=== PATIENT | male | born 1950 | race Caucasian/White ===

== ENCOUNTER 2021-08-11 09:40 | Outpatient (CLI) | payer MEDICARE, MEDICAID | END 2021-08-11 09:41 | disposition home or self-care (01) | LOC: PET 09:40 | PROVIDERS: ATTEND Family Medicine | DX: J98.59 Other diseases of mediastinum, not elsewhere classified (principal); R18.8 Other ascites; C38.3 Malignant neoplasm of mediastinum, part unspecified; Z87.898 Personal history of other specified conditions; Z90.81 Acquired absence of spleen; Z90.5 Acquired absence of kidney | CPT/HCPCS: 78815; A9552 ==

== ENCOUNTER 2021-10-27 12:33 | Day surgery (SDC) | payer OTHER, MEDICAID, MEDICARE ==
[2021-10-26 16:02] VITALS: BMI 29.1
[~2021-10-27 12:33] MED LIST: FLU VACC QS2021-22(65YR UP)/PF 240 MCG/0.7 ML SYRINGE IM ONE
[2021-10-27 13:03] LABS: Hemoglobin 12.4 g/dL (14.0-18.0); Mean Corpuscular HGB CONC 28.2 g/dL (32.0-36.0); Mean Corpuscular Hemoglobin 30.6 pg (27.0-31.0); Mean Platelet Volume 7.5 fL (7.4-10.4); Platelet Count 284 thou/uL (130-400); RBC Distribution Width 14.9 % (11.5-14.5); Red Blood Cell (RBC) Count 4.05 mill/uL (4.70-6.10); White Blood Cell (WBC) Count 7.1 thou/uL (4.8-10.8)
[2021-10-27 13:18] LABS: INR-International Normal Ratio 1.2; PTT 30.3 sec (22.9-36.1); Prothrombin Time 15.2 sec (12.0-14.7)
[2021-10-27] MEDS ORDERED: Sodium Bicarbonate 2.5 MEQ/5 ML VIAL ONE (13:27)
[2021-10-27] MEDS ORDERED: Lidocaine 1% PF 5 ML VIAL ONE (13:27)
[2021-10-27 13:30] LABS: Eosinophils 3 % (0-10); Lymphocytes 19 % (21-51); MDiff Complete? YES; Macrocytosis SLIGHT = 6-15 cells (100X) (0-5/hpf); Monocytes 6 % (0-10); Neutrophil 71 % (42-75); Ovalocytes SLIGHT = 2-5 cells (100X) (0-1/hpf); Platelet Morphology Comment Appears Adequate; Polychromasia SLIGHT = 2-3 cells (100X) (0-2/hpf); Reactive Lymphocytes 1 % (0-10); Target Cells SLIGHT = 2-5 cells (100X) (0-1/hpf)
[2021-10-27 15:02] VITALS: BP 122/74; TEMP 98.4
[2021-10-27 16:11] LABS: RBC Count-Automated (BF) 1065 /cu.mm; WBC/Nucleated-Auto (BF) 124 /cu.mm
[2021-10-27 16:12] LABS: BF Color Yellow; Body Fluid Source Ascites Body Fluid; Clarity Hazy (Clear); Tube # EDTA
[2021-10-27 16:40] LABS: BF Segmented Neutrophils 40 %; Cell Count Non Hematic 48 %; Lymphocytes 10 %
== END 2021-10-27 14:15 | disposition home or self-care (01) ==
LOC: ULT 12:33
PROVIDERS: ATTEND Physician Assistant Medical
PROC: 0W9G3ZX Drainage of Peritoneal Cavity, Percutaneous Approach, Diagnostic (ICD-10-PCS; principal; 2021-10-27)
DX: R18.8 Other ascites (principal); R74.8 Abnormal levels of other serum enzymes; C34.90 Malignant neoplasm of unspecified part of unspecified bronchus or lung; D63.0 Anemia in neoplastic disease; F17.200 Nicotine dependence, unspecified, uncomplicated; I11.0 Hypertensive heart disease with heart failure; I50.9 Heart failure, unspecified; Z23 Encounter for immunization; Z79.82 Long term (current) use of aspirin; Z79.899 Other long term (current) drug therapy; Z90.5 Acquired absence of kidney
CPT/HCPCS: 49083; 82042; 84157; 85025; 85610; 85730; 87070; 87205; 89051; 90662; G0008; 36415; 85060; 88112; 88305; 90471

== ENCOUNTER 2021-12-02 12:35 | Inpatient (IN) | payer MEDICARE, OTHER ==
[~2021-12-02 12:35] MED LIST changes: -FLU VACC QS2021-22(65YR UP)/PF 240 MCG/0.7 ML SYRINGE IM ONE; +Iopamidol-370 76% 500 ML 1 ML ONE
[2021-12-02] MEDS ORDERED: Morphine 4 MG/ML VIAL ONE (13:26)
[2021-12-02 13:45] LABS: Hemoglobin 6.2 g/dL (14.0-18.0); Mean Corpuscular HGB CONC 30.1 g/dL (32.0-36.0); Mean Corpuscular Hemoglobin 32.5 pg (27.0-31.0); Mean Platelet Volume 7.2 fL (7.4-10.4); Platelet Count 290 thou/uL (130-400); RBC Distribution Width 16.4 % (11.5-14.5); Red Blood Cell (RBC) Count 1.91 mill/uL (4.70-6.10); White Blood Cell (WBC) Count 7.9 thou/uL (4.8-10.8)
[2021-12-02 13:59] LABS: ALT (SGPT) 13 U/L (8-55); AST (SGOT) 23 U/L (5-34); Alkaline Phosphatase 123 U/L (40-110); Anion Gap 16 mmol/L (10-20); Anisocytosis SLIGHT = 6-15 cells (100X) (0-5/hpf); BUN (Urea Nitrogen) 22 mg/dL (8.4-25.7); Bilirubin, Total 1.1 mg/dL (0.2-1.2); Calc. Creatinine Clearance 0 mL/min (70-130); Calcium 8.1 mg/dL (7.8-10.44); Carbon Dioxide 29 mmol/L (23-31); Chloride 88 mmol/L (98-107); Eosinophils 1 % (0-10); Globulin 2.7 g/dL (2.4-3.5); Glucose 86 mg/dL (83-110); Hypochromia SLIGHT = 6-15 cells (100X) (0-5/hpf); Lymphocytes 10 % (21-51); MDiff Complete? YES; Macrocytosis SLIGHT = 6-15 cells (100X) (0-5/hpf); Monocytes 11 % (0-10); Neutrophil 72 % (42-75); Platelet Morphology Comment Appears Adequate; Polychromasia SLIGHT = 2-3 cells (100X) (0-2/hpf); Potassium 3.4 mmol/L (3.5-5.1); Protein, Total 5.7 g/dL (5.8-8.1); Reactive Lymphocytes 1 % (0-10); Sodium 130 mmol/L (136-145); Target Cells SLIGHT = 2-5 cells (100X) (0-1/hpf)
[2021-12-02 14:22] LABS: CKMB 4.9 ng/mL (0-6.6)
[2021-12-02] MEDS ORDERED: Furosemide 40 MG/4 ML VIAL ONE (14:29)
[2021-12-02] MEDS ORDERED: Ondansetron PF 4 MG/2 ML Vial IVP PRN (14:51)
[2021-12-02] MEDS ORDERED: Ondansetron ODT 4 MG TAB PO PRN (14:51)
[2021-12-02] MEDS ORDERED: Acetaminophen 650 MG Suppository PR PRN (14:51)
[2021-12-02] MEDS ORDERED: Acetaminophen 325 MG TAB PO PRN (14:51)
[2021-12-02] MEDS ORDERED: Magnesium 2 GM/50 ML(in water) 2 GM in Premix Bag 1 BAG IVPB SCH (15:00)
[2021-12-02] MEDS ORDERED: Potassium Chloride 20 MEQ TAB PO SCH (15:00)
[2021-12-02] MEDS ORDERED: Methocarbamol 500 MG TAB PO SCH (15:15)
[2021-12-02 15:20] LABS: Magnesium 1.7 mg/dL (1.6-2.6)
[2021-12-02] MEDS ORDERED: Furosemide 40 MG/4 ML VIAL SLOW IVP SCH (17:45)
[2021-12-02 18:57] LABS: INR-International Normal Ratio 2.2
[2021-12-02 19:09] LABS: Anion Gap 14 mmol/L (10-20); BUN (Urea Nitrogen) 24 mg/dL (8.4-25.7); Calc. Creatinine Clearance 74 mL/min (70-130); Calcium 8.3 mg/dL (7.8-10.44); Carbon Dioxide 35 mmol/L (23-31); Chloride 87 mmol/L (98-107); Glucose 94 mg/dL (83-110); Potassium 3.8 mmol/L (3.5-5.1); Sodium 132 mmol/L (136-145)
[2021-12-02] MEDS: Pantoprazole 40 MG VIAL IVP SCH ×3 (19:11→22:02)
[2021-12-02 19:16] LABS: Troponin I 0.084 ng/mL (< 0.028)
[2021-12-02] MEDS: Octreotide Acetate 1,250 MCG in Sodium Chloride 0.9% 250 ML 250 ML IVPB SCH (19:26)
[2021-12-02] MEDS ORDERED: Morphine 2 MG/ML VIAL SLOW IVP SCH (19:30)
[2021-12-02 20:09] LABS: Troponin I 0.088 ng/mL (< 0.028)
[2021-12-02 20:41] LABS: Bacteria/HPF None Seen HPF (None Seen); Bilirubin Negative (Negative); Blood, Urine Negative (Negative); Clarity Clear (Clear); Glucose, Urine (Dipstick) Normal (Negative); Ketone, Urine Negative (Negative); Leukocyte Negative Leu/uL (Negative); Nitrite Negative (Negative); Protein, Urine (Dipstick) Negative (Neg-Trace); RBC/HPF 0-3 HPF (0-3); Specific Gravity, Urine 1.024 (1.002-1.036); Squamous Epithelial None Seen HPF (0-3); Urobilinogen Normal mg/dL (Less than 2); WBC/HPF None Seen HPF (0-3); pH, Urine 6.5 (5.0-9.0)
[2021-12-02 20:44] LABS: Urine Culture Reflex No No
[2021-12-02 21:52] LABS: Hemoglobin 7.1 g/dL (14.0-18.0); Mean Corpuscular HGB CONC 30.7 g/dL (32.0-36.0); Mean Corpuscular Hemoglobin 31.9 pg (27.0-31.0); Mean Platelet Volume 7.2 fL (7.4-10.4); Platelet Count 300 thou/uL (130-400); RBC Distribution Width 17.2 % (11.5-14.5); Red Blood Cell (RBC) Count 2.23 mill/uL (4.70-6.10); White Blood Cell (WBC) Count 9.9 thou/uL (4.8-10.8)
[2021-12-02 22:12] LABS: Band 7 % (5-11); Eosinophils 1 % (0-10); Lymphocytes 11 % (21-51); MDiff Complete? YES; Monocytes 9 % (0-10); Neutrophil 70 % (42-75)
[2021-12-02] MEDS: Metoprolol Tartrate 50 MG TAB PO SCH (22:17)
[2021-12-02] MEDS ORDERED: Furosemide 40 MG/4 ML VIAL IVP SCH (22:30)
[2021-12-02 22:55] LABS: Anion Gap 16 mmol/L (10-20); BUN (Urea Nitrogen) 23 mg/dL (8.4-25.7); Calc. Creatinine Clearance 75 mL/min (70-130); Calcium 8.3 mg/dL (7.8-10.44); Carbon Dioxide 31 mmol/L (23-31); Chloride 88 mmol/L (98-107); Glucose 95 mg/dL (83-110); Magnesium 1.7 mg/dL (1.6-2.6); Potassium 3.9 mmol/L (3.5-5.1); Sodium 131 mmol/L (136-145)
[2021-12-02] MEDS ORDERED: Promethazine HCl 25 MG/ML VIAL IM PRN ×2 (23:35→23:37)
[2021-12-02] MEDS ORDERED: Digoxin 0.5 MG/2 ML AMP SLOW IVP SCH (23:45)
[2021-12-03] MEDS ORDERED: Amiodarone 150 MG, Admixture Fee 1 EACH in Dextrose 5% in Water 100 ML IVPB SCH (00:45)
[2021-12-03] MEDS: Amiodarone 450 MG, Admixture Fee 1 EACH in Dextrose 5% in Water 250 ML IVPB SCH ×2 (01:16→10:29)
[2021-12-03 04:49] LABS: ALT (SGPT) 12 U/L (8-55); AST (SGOT) 30 U/L (5-34); Albumin 3.3 g/dL (3.4-4.8); Alkaline Phosphatase 133 U/L (40-110); Anion Gap 15 mmol/L (10-20); BUN (Urea Nitrogen) 24 mg/dL (8.4-25.7); Bilirubin, Total 2.5 mg/dL (0.2-1.2); Calc. Creatinine Clearance 67 mL/min (70-130); Calcium 8.2 mg/dL (7.8-10.44); Carbon Dioxide 32 mmol/L (23-31); Chloride 87 mmol/L (98-107); Glucose 119 mg/dL (83-110); Magnesium 1.9 mg/dL (1.6-2.6); Potassium 4.3 mmol/L (3.5-5.1); Protein, Total 6.3 g/dL (5.8-8.1); Sodium 130 mmol/L (136-145)
[2021-12-03 04:53] LABS: Band 3 % (5-11); Eosinophils 1 % (0-10); Lymphocytes 12 % (21-51); MDiff Complete? YES; Mean Corpuscular HGB CONC 30.7 g/dL (32.0-36.0); Mean Corpuscular Hemoglobin 31.7 pg (27.0-31.0); Mean Platelet Volume 7.5 fL (7.4-10.4); Monocytes 19 % (0-10); Neutrophil 65 % (42-75); Nucleated RBC 2 % (0); Platelet Count 310 thou/uL (130-400); RBC Distribution Width 17.8 % (11.5-14.5); Red Blood Cell (RBC) Count 2.52 mill/uL (4.70-6.10); White Blood Cell (WBC) Count 12.9 thou/uL (4.8-10.8)
[2021-12-03] MEDS: Pantoprazole 40 MG VIAL IVP SCH ×2 (08:01→21:08)
[2021-12-03 10:06] LABS: Hemoglobin 7.8 g/dL (14.0-18.0)
[2021-12-03] MEDS: Atorvastatin Calcium 40 MG TAB PO SCH (10:12)
[2021-12-03] MEDS: Metoprolol Tartrate 50 MG TAB PO SCH ×2 (10:13→21:16)
[2021-12-03 12:22] LABS: SARS-CoV-2 PCR by NAA Not Detected (NotDetected)
[2021-12-03 16:38] LABS: Hemoglobin 7.6 g/dL (14.0-18.0)
[2021-12-03] MEDS: HYDROcodone/Acetaminophen 5/325 mg Tablet PO PRN (18:20)
[2021-12-03] MEDS ORDERED: Cyclobenzaprine 10 MG TAB PO SCH (21:00)
[2021-12-03] MEDS: Octreotide Acetate 1,250 MCG in Sodium Chloride 0.9% 250 ML 250 ML IVPB SCH (21:13)
[2021-12-03 22:21] LABS: Hemoglobin 7.7 g/dL (14.0-18.0)
[2021-12-04] MEDS: HYDROcodone/Acetaminophen 5/325 mg Tablet PO PRN (01:23)
[2021-12-04] MEDS: Amiodarone 450 MG, Admixture Fee 1 EACH in Dextrose 5% in Water 250 ML IVPB SCH ×2 (01:25→19:51)
[2021-12-04 04:37] LABS: ALT (SGPT) 13 U/L (8-55); AST (SGOT) 26 U/L (5-34); Albumin 3.4 g/dL (3.4-4.8); Alkaline Phosphatase 128 U/L (40-110); Anion Gap 11 mmol/L (10-20); BUN (Urea Nitrogen) 30 mg/dL (8.4-25.7); Bilirubin, Total 1.7 mg/dL (0.2-1.2); Calc. Creatinine Clearance 57 mL/min (70-130); Calcium 8.3 mg/dL (7.8-10.44); Carbon Dioxide 36 mmol/L (23-31); Chloride 86 mmol/L (98-107); Globulin 3.1 g/dL (2.4-3.5); Glucose 128 mg/dL (83-110); Potassium 4.4 mmol/L (3.5-5.1); Protein, Total 6.5 g/dL (5.8-8.1); Sodium 129 mmol/L (136-145)
[2021-12-04 05:14] LABS: Band 9 % (5-11); Hemoglobin 7.8 g/dL (14.0-18.0); Lymphocytes 16 % (21-51); MDiff Complete? YES; Macrocytosis SLIGHT = 6-15 cells (100X) (0-5/hpf); Mean Corpuscular HGB CONC 29.9 g/dL (32.0-36.0); Mean Corpuscular Hemoglobin 31.9 pg (27.0-31.0); Mean Platelet Volume 7.7 fL (7.4-10.4); Neutrophil 74 % (42-75); Platelet Count 362 thou/uL (130-400); Platelet Morphology Comment Appears Adequate; RBC Distribution Width 17.3 % (11.5-14.5); Red Blood Cell (RBC) Count 2.43 mill/uL (4.70-6.10); White Blood Cell (WBC) Count 10.3 thou/uL (4.8-10.8)
[2021-12-04] MEDS: Budesonide 0.5 MG/2 ML NEB NEB SCH ×2 (07:31→19:16)
[2021-12-04] MEDS: Atorvastatin Calcium 40 MG TAB PO SCH (10:24)
[2021-12-04] MEDS: Metoprolol Tartrate 50 MG TAB PO SCH ×2 (10:34→22:20)
[2021-12-04] MEDS: Pantoprazole 40 MG VIAL IVP SCH ×2 (10:35→22:20)
[2021-12-04] MEDS ORDERED: Midazolam HCl 2 mg/2 ml Vial ONE (10:42)
[2021-12-04] MEDS ORDERED: Ketamine 50 MG/ML (10ML VIAL) ONE (10:42)
[2021-12-04] MEDS ORDERED: Ondansetron HCl/PF 4 MG/2 ML Vial IVP PRN (12:05)
[2021-12-04] MEDS ORDERED: Succinylcholine 200 MG/10 ml SYRINGE FS ONE (12:12)
[2021-12-04] MEDS ORDERED: PROPOFOL 200 MG/20 ML VIAL ONE (12:12)
[2021-12-04] MEDS ORDERED: PHENYLEPHRINE-NS 100 MCG/ML 10 ML SYRINGE ONE (12:12)
[2021-12-04] MEDS: Octreotide Acetate 1,250 MCG in Sodium Chloride 0.9% 250 ML 250 ML IVPB SCH (22:19)
[2021-12-05] MEDS ORDERED: Amiodarone 450 MG, Admixture Fee 1 EACH in Dextrose 5% in Water 250 ML IVPB SCH (02:03)
[2021-12-05] MEDS: HYDROcodone/Acetaminophen 5/325 mg Tablet PO PRN ×2 (03:13)
[2021-12-05 05:10] LABS: ALT (SGPT) 15 U/L (8-55); AST (SGOT) 56 U/L (5-34); Albumin 2.8 g/dL (3.4-4.8); Alkaline Phosphatase 120 U/L (40-110); BUN (Urea Nitrogen) 33 mg/dL (8.4-25.7); Bilirubin, Total 1.7 mg/dL (0.2-1.2); Calc. Creatinine Clearance 51 mL/min (70-130); Calcium 7.8 mg/dL (7.8-10.44); Carbon Dioxide 22 mmol/L (23-31); Chloride 90 mmol/L (98-107); Globulin 3.5 g/dL (2.4-3.5); Glucose 85 mg/dL (83-110); Potassium 5.2 mmol/L (3.5-5.1); Protein, Total 6.3 g/dL (5.8-8.1); Sodium 128 mmol/L (136-145)
[2021-12-05] MEDS: Budesonide 0.5 MG/2 ML NEB NEB SCH ×3 (07:30→19:16)
[2021-12-05 07:55] LABS: Hemoglobin 7.9 g/dL (14.0-18.0); Mean Corpuscular HGB CONC 28.8 g/dL (32.0-36.0); Mean Corpuscular Hemoglobin 31.9 pg (27.0-31.0); RBC Distribution Width 16.9 % (11.5-14.5); Red Blood Cell (RBC) Count 2.48 mill/uL (4.70-6.10)
[2021-12-05 08:58] LABS: Anisocytosis SLIGHT = 6-15 cells (100X) (0-5/hpf); Band 1 % (5-11); Eosinophils 5 % (0-10); Lymphocytes 9 % (21-51); MDiff Complete? YES; Mean Platelet Volume 8.1 fL (7.4-10.4); Monocytes 12 % (0-10); Neutrophil 73 % (42-75); Nucleated RBC 2 % (0); Platelet Count 347 thou/uL (130-400); Platelet Morphology Comment Appears Adequate; Polychromasia SLIGHT = 2-3 cells (100X) (0-2/hpf)
[2021-12-05] MEDS: Atorvastatin Calcium 40 MG TAB PO SCH (09:08)
[2021-12-05] MEDS: Metoprolol Tartrate 50 MG TAB PO SCH (09:08)
[2021-12-05] MEDS: Pantoprazole 40 MG VIAL IVP SCH ×2 (09:08→20:19)
[2021-12-05] MEDS: Sodium Chloride 0.9% 1,000 ML IV SCH (12:30)
[2021-12-05] MEDS ORDERED: Midodrine HCl 5 MG TAB PO SCH (20:04)
[2021-12-05] MEDS ORDERED: Sodium Chloride 0.9% 250 ML IV SCH (20:15)
[2021-12-05] MEDS: Octreotide Acetate 1,250 MCG in Sodium Chloride 0.9% 250 ML 250 ML IVPB SCH (21:57)
[2021-12-06] MEDS: HYDROcodone/Acetaminophen 5/325 mg Tablet PO PRN ×2 (03:39→18:15)
[2021-12-06] MEDS: Sodium Chloride 0.9% 1,000 ML IV SCH (03:41)
[2021-12-06 05:16] LABS: ALT (SGPT) 15 U/L (8-55); AST (SGOT) 32 U/L (5-34); Albumin 2.9 g/dL (3.4-4.8); Alkaline Phosphatase 116 U/L (40-110); Anion Gap 18 mmol/L (10-20); BUN (Urea Nitrogen) 41 mg/dL (8.4-25.7); Bilirubin, Total 1.6 mg/dL (0.2-1.2); Calc. Creatinine Clearance 40 mL/min (70-130); Calcium 7.9 mg/dL (7.8-10.44); Carbon Dioxide 25 mmol/L (23-31); Chloride 89 mmol/L (98-107); Globulin 3.3 g/dL (2.4-3.5); Glucose 91 mg/dL (83-110); Protein, Total 6.2 g/dL (5.8-8.1); Sodium 127 mmol/L (136-145)
[2021-12-06 05:54] LABS: Band 6 % (5-11); Elliptocytes SLIGHT = 2-5 cells (100X) (0-1/hpf); Hemoglobin 7.4 g/dL (14.0-18.0); Hypochromia SLIGHT = 6-15 cells (100X) (0-5/hpf); Lymphocytes 7 % (21-51); MDiff Complete? YES; Mean Corpuscular HGB CONC 29.9 g/dL (32.0-36.0); Mean Corpuscular Hemoglobin 32.1 pg (27.0-31.0); Mean Platelet Volume 7.8 fL (7.4-10.4); Monocytes 12 % (0-10); Neutrophil 75 % (42-75); Nucleated RBC 1 % (0); Platelet Count 415 thou/uL (130-400); Platelet Morphology Comment Appears Increased; Polychromasia SLIGHT = 2-3 cells (100X) (0-2/hpf); RBC Distribution Width 16.4 % (11.5-14.5); Red Blood Cell (RBC) Count 2.29 mill/uL (4.70-6.10); Target Cells SLIGHT = 2-5 cells (100X) (0-1/hpf); White Blood Cell (WBC) Count 10.3 thou/uL (4.8-10.8)
[2021-12-06] MEDS: Budesonide 0.5 MG/2 ML NEB NEB SCH ×2 (07:25→18:49)
[2021-12-06] MEDS ORDERED: Bisacodyl 5 MG TAB PO PRN (07:42)
[2021-12-06] MEDS: DOPamine 400 MG/D5W 250 ML 250 ML IVPB SCH ×2 (08:31→21:55)
[2021-12-06] MEDS ORDERED: Furosemide 40 MG/4 ML VIAL ONE (09:19)
[2021-12-06] MEDS: Pantoprazole 40 MG VIAL IVP SCH ×2 (10:28→21:04)
[2021-12-06] MEDS: Atorvastatin Calcium 40 MG TAB PO SCH (10:28)
[2021-12-06 11:54] LABS: INR-International Normal Ratio 1.4; Prothrombin Time 17.6 sec (12.0-14.7)
[2021-12-06 11:55] LABS: PTT 45.3 sec (22.9-36.1)
[2021-12-06 14:32] LABS: Creatinine, Urine 60.54 mg/dL (63-166)
[2021-12-06 15:02] LABS: Iron 11 ug/dL (65-175); Iron Binding Capacity, Total 414 mcg/dL (261-462)
[2021-12-06] MEDS ORDERED: Furosemide 40 MG/4 ML VIAL SLOW IVP SCH (15:30)
[2021-12-06] MEDS: Albumin 25% 25 GM/100 ML BOT IVPB SCH ×2 (16:33→23:11)
[2021-12-06 17:08] LABS: RBC Count-Automated (BF) 1682 /cu.mm; WBC/Nucleated-Auto (BF) 262 /cu.mm
[2021-12-06 18:09] LABS: BF Color Yellow; Body Fluid Source Ascites Body Fluid; Clarity Clear (Clear); Tube # EDTA
[2021-12-06 18:11] LABS: BF Segmented Neutrophils 57 %; Cell Count Non Hematic 30 %; Lymphocytes 13 %
[2021-12-06] MEDS: Morphine 2 MG/ML VIAL SLOW IVP PRN ×2 (19:14→23:14)
[2021-12-06] MEDS ORDERED: Iron, Sodium Ferric Gluconate 250 MG in Sodium Chloride 0.9% 250 ML 250 ML IVPB SCH (20:30)
[2021-12-06] MEDS: Furosemide 20 MG/2 ML VIAL SLOW IVP SCH (21:04)
[2021-12-06] MEDS ORDERED: Hyoscyamine Sulfate 0.125 MG/5 ML UDCUP PO SCH (22:00)
[2021-12-06] MEDS: Octreotide Acetate 1,250 MCG in Sodium Chloride 0.9% 250 ML 250 ML IVPB SCH (23:11)
[2021-12-07 05:03] LABS: ALT (SGPT) 14 U/L (8-55); AST (SGOT) 20 U/L (5-34); Albumin 3.6 g/dL (3.4-4.8); Alkaline Phosphatase 109 U/L (40-110); Anion Gap 16 mmol/L (10-20); BUN (Urea Nitrogen) 41 mg/dL (8.4-25.7); Bilirubin, Total 2.2 mg/dL (0.2-1.2); Calc. Creatinine Clearance 48 mL/min (70-130); Calcium 8.1 mg/dL (7.8-10.44); Carbon Dioxide 33 mmol/L (23-31); Chloride 89 mmol/L (98-107); Globulin 2.8 g/dL (2.4-3.5); Glucose 96 mg/dL (83-110); Potassium 4.1 mmol/L (3.5-5.1); Protein, Total 6.4 g/dL (5.8-8.1); Sodium 134 mmol/L (136-145)
[2021-12-07 05:46] LABS: Anisocytosis SLIGHT = 6-15 cells (100X) (0-5/hpf); Band 3 % (5-11); Eosinophils 1 % (0-10); Hemoglobin 7.7 g/dL (14.0-18.0); Hypochromia MODERATE=16-30 cells (100X) (0-5/hpf); Lymphocytes 8 % (21-51); MDiff Complete? YES; Macrocytosis MODERATE=16-30 cells (100X) (0-5/hpf); Mean Corpuscular HGB CONC 30.8 g/dL (32.0-36.0); Mean Corpuscular Hemoglobin 32.3 pg (27.0-31.0); Mean Platelet Volume 7.5 fL (7.4-10.4); Monocytes 19 % (0-10); Neutrophil 68 % (42-75); Platelet Count 471 thou/uL (130-400); Platelet Morphology Comment Appears Increased; Polychromasia MODERATE = 3-4 cells (100X) (0-2/hpf); RBC Distribution Width 15.9 % (11.5-14.5); Reactive Lymphocytes 1 % (0-10); Red Blood Cell (RBC) Count 2.38 mill/uL (4.70-6.10); Target Cells SLIGHT = 2-5 cells (100X) (0-1/hpf); White Blood Cell (WBC) Count 8.2 thou/uL (4.8-10.8)
[2021-12-07] MEDS: Albumin 25% 25 GM/100 ML BOT IVPB SCH (06:02)
[2021-12-07] MEDS: Furosemide 20 MG/2 ML VIAL SLOW IVP SCH ×3 (06:02→21:29)
[2021-12-07] MEDS: Budesonide 0.5 MG/2 ML NEB NEB SCH ×2 (06:06→22:16)
[2021-12-07] MEDS ORDERED: Spironolactone 100 MG TAB PO SCH (06:45)
[2021-12-07] MEDS: Atorvastatin Calcium 40 MG TAB PO SCH (08:47)
[2021-12-07] MEDS: AcetaZOLAMIDE 250 MG TAB PO SCH ×3 (08:47→21:32)
[2021-12-07] MEDS: Pantoprazole 40 MG VIAL IVP SCH ×2 (08:47→21:29)
[2021-12-07] MEDS: Iron, Sodium Ferric Gluconate 250 MG in Sodium Chloride 0.9% 250 ML 250 ML IVPB SCH (08:48)
[2021-12-07 09:26] LABS: Bilirubin Negative (Negative); Blood, Urine 2+ (Negative); Clarity Clear (Clear); Glucose, Urine (Dipstick) Normal (Negative); Ketone, Urine Negative (Negative); Leukocyte 500 Leu/uL (Negative); Nitrite Negative (Negative); Protein, Urine (Dipstick) Negative (Neg-Trace); Squamous Epithelial 0-3 HPF (0-3); Urobilinogen Normal mg/dL (Less than 2)
[2021-12-07 09:27] LABS: Bacteria/HPF 1+ HPF (None Seen); Urine Culture Reflex Yes Yes
[2021-12-07] MEDS: Morphine 2 MG/ML VIAL SLOW IVP PRN (12:37)
[2021-12-07] MEDS: Morphine 4 MG/ML VIAL SLOW IVP PRN (19:09)
[2021-12-07] MEDS: Octreotide Acetate 1,250 MCG in Sodium Chloride 0.9% 250 ML 250 ML IVPB SCH (21:29)
[2021-12-07] MEDS: DOPamine 400 MG/D5W 250 ML 250 ML IVPB SCH (21:33)
[2021-12-07] MEDS: HYDROcodone/Acetaminophen 5/325 mg Tablet PO PRN (23:14)
[2021-12-08] MEDS: Morphine 4 MG/ML VIAL SLOW IVP PRN (03:32)
[2021-12-08] MEDS: Furosemide 20 MG/2 ML VIAL SLOW IVP SCH ×3 (05:16→21:40)
[2021-12-08] MEDS: Budesonide 0.5 MG/2 ML NEB NEB SCH ×2 (07:21→18:19)
[2021-12-08 08:25] LABS: ALT (SGPT) 12 U/L (8-55); AST (SGOT) 18 U/L (5-34); Albumin 3.5 g/dL (3.4-4.8); Alkaline Phosphatase 108 U/L (40-110); BUN (Urea Nitrogen) 31 mg/dL (8.4-25.7); Bilirubin, Total 1.7 mg/dL (0.2-1.2); Calc. Creatinine Clearance 56 mL/min (70-130); Calcium 8.2 mg/dL (7.8-10.44); Glucose 97 mg/dL (83-110); Magnesium 1.6 mg/dL (1.6-2.6); Phosphorus 3.5 mg/dL (2.3-4.7); Protein, Total 6.5 g/dL (5.8-8.1)
[2021-12-08 08:35] LABS: Anion Gap 17 mmol/L (10-20); Carbon Dioxide 35 mmol/L (23-31); Chloride 89 mmol/L (98-107); Potassium 3.9 mmol/L (3.5-5.1); Sodium 137 mmol/L (136-145)
[2021-12-08] MEDS: Pantoprazole 40 MG VIAL IVP SCH ×2 (09:38→21:36)
[2021-12-08] MEDS: AcetaZOLAMIDE 250 MG TAB PO SCH ×3 (09:38→21:36)
[2021-12-08] MEDS: HYDROcodone/Acetaminophen 5/325 mg Tablet PO PRN (09:42)
[2021-12-08] MEDS: Iron, Sodium Ferric Gluconate 250 MG in Sodium Chloride 0.9% 250 ML 250 ML IVPB SCH (10:45)
[2021-12-08] MEDS: Atorvastatin Calcium 40 MG TAB PO SCH ×2 (10:47→21:36)
[2021-12-08] MEDS ORDERED: Magnesium 2 GM/50 ML(in water) 2 GM in Premix Bag 1 BAG IVPB SCH (15:00)
[2021-12-08] MEDS: Trospium 20 MG TAB PO SCH (21:36)
[2021-12-09] MEDS: DOPamine 400 MG/D5W 250 ML 250 ML IVPB SCH ×2 (00:22→13:19)
[2021-12-09] MEDS: Morphine 4 MG/ML VIAL SLOW IVP PRN (01:20)
[2021-12-09 04:44] LABS: ALT (SGPT) 11 U/L (8-55); AST (SGOT) 20 U/L (5-34); Albumin 3.4 g/dL (3.4-4.8); Alkaline Phosphatase 105 U/L (40-110); BUN (Urea Nitrogen) 25 mg/dL (8.4-25.7); Bilirubin, Total 1.6 mg/dL (0.2-1.2); Calc. Creatinine Clearance 64 mL/min (70-130); Calcium 8.5 mg/dL (7.8-10.44); Glucose 117 mg/dL (83-110); Protein, Total 6.4 g/dL (5.8-8.1)
[2021-12-09 04:55] LABS: Chloride 89 mmol/L (98-107); Sodium 137 mmol/L (136-145)
[2021-12-09 04:58] LABS: Anion Gap 17 mmol/L (10-20); Carbon Dioxide 35 mmol/L (23-31)
[2021-12-09] MEDS: Furosemide 20 MG/2 ML VIAL SLOW IVP SCH ×3 (05:45→21:00)
[2021-12-09] MEDS: Budesonide 0.5 MG/2 ML NEB NEB SCH ×2 (07:14→18:19)
[2021-12-09] MEDS: Trospium 20 MG TAB PO SCH ×2 (08:33→20:49)
[2021-12-09] MEDS: HYDROcodone/Acetaminophen 5/325 mg Tablet PO PRN ×3 (08:33→20:50)
[2021-12-09] MEDS: AcetaZOLAMIDE 250 MG TAB PO SCH ×3 (08:33→20:50)
[2021-12-09] MEDS: Pantoprazole 40 MG VIAL IVP SCH ×2 (08:33→20:51)
[2021-12-09] MEDS: Iron, Sodium Ferric Gluconate 250 MG in Sodium Chloride 0.9% 250 ML 250 ML IVPB SCH (10:28)
[2021-12-09 17:32] LABS: Troponin I 0.026 ng/mL (< 0.028)
[2021-12-09] MEDS: Atorvastatin Calcium 40 MG TAB PO SCH (20:50)
[2021-12-09 21:48] LABS: Troponin I 0.032 ng/mL (< 0.028)
[2021-12-09] MEDS ORDERED: Sodium Chloride 0.9% 500 ML IV SCH (22:45)
[2021-12-10] MEDS: Morphine 4 MG/ML VIAL SLOW IVP PRN ×3 (00:19→23:51)
[2021-12-10] MEDS: DOPamine 400 MG/D5W 250 ML 250 ML IVPB SCH ×2 (00:20→13:22)
[2021-12-10] MEDS ORDERED: Fentanyl 100 MCG/2 ML VIAL SLOW IVP SCH (02:09)
[2021-12-10 03:04] LABS: Band 12 % (5-11); Hemoglobin 8.6 g/dL (14.0-18.0); Hypochromia SLIGHT = 6-15 cells (100X) (0-5/hpf); Lymphocytes 4 % (21-51); MDiff Complete? YES; Macrocytosis SLIGHT = 6-15 cells (100X) (0-5/hpf); Mean Corpuscular HGB CONC 28.4 g/dL (32.0-36.0); Mean Platelet Volume 7.4 fL (7.4-10.4); Metamyelocyte 1 % (0-0); Monocytes 30 % (0-10); Neutrophil 53 % (42-75); Nucleated RBC 6 % (0); Platelet Count 524 thou/uL (130-400); Platelet Morphology Comment Appears Increased; RBC Distribution Width 16.6 % (11.5-14.5); Red Blood Cell (RBC) Count 2.77 mill/uL (4.70-6.10); Target Cells SLIGHT = 2-5 cells (100X) (0-1/hpf); Troponin I 0.032 ng/mL (< 0.028)
[2021-12-10 03:27] LABS: ALT (SGPT) 10 U/L (8-55); AST (SGOT) 18 U/L (5-34); Albumin 3.2 g/dL (3.4-4.8); Alkaline Phosphatase 111 U/L (40-110); Anion Gap 16 mmol/L (10-20); BUN (Urea Nitrogen) 23 mg/dL (8.4-25.7); Bilirubin, Total 1.4 mg/dL (0.2-1.2); Calc. Creatinine Clearance 71 mL/min (70-130); Calcium 8.1 mg/dL (7.8-10.44); Carbon Dioxide 37 mmol/L (23-31); Chloride 90 mmol/L (98-107); Globulin 2.7 g/dL (2.4-3.5); Glucose 125 mg/dL (83-110); Potassium 4.2 mmol/L (3.5-5.1); Protein, Total 5.9 g/dL (5.8-8.1); Sodium 139 mmol/L (136-145)
[2021-12-10] MEDS: Budesonide 0.5 MG/2 ML NEB NEB SCH ×2 (06:05→18:19)
[2021-12-10] MEDS: Furosemide 20 MG/2 ML VIAL SLOW IVP SCH (07:56)
[2021-12-10] MEDS: Pantoprazole 40 MG VIAL IVP SCH ×2 (08:05→20:20)
[2021-12-10] MEDS: Albumin 25% 25 GM/100 ML BOT IVPB SCH ×2 (08:05→15:48)
[2021-12-10] MEDS: Trospium 20 MG TAB PO SCH ×2 (08:19→20:20)
[2021-12-10] MEDS: Iron, Sodium Ferric Gluconate 250 MG in Sodium Chloride 0.9% 250 ML 250 ML IVPB SCH (09:09)
[2021-12-10] MEDS: HYDROcodone/Acetaminophen 5/325 mg Tablet PO PRN ×2 (09:10→20:56)
[2021-12-10 12:03] LABS: SARS-CoV-2 PCR by NAA Not Detected (NotDetected)
[2021-12-10 17:10] VITALS: BP 90/67
[2021-12-10] MEDS: Atorvastatin Calcium 40 MG TAB PO SCH (20:20)
[2021-12-10] MEDS ORDERED: Digoxin 0.5 MG/2 ML AMP SLOW IVP SCH (21:00)
[2021-12-11] MEDS: DOPamine 400 MG/D5W 250 ML 250 ML IVPB SCH ×2 (01:26→13:50)
[2021-12-11] MEDS: Digoxin 0.5 MG/2 ML AMP SLOW IVP SCH ×2 (02:34→09:12)
[2021-12-11] MEDS: HYDROcodone/Acetaminophen 5/325 mg Tablet PO PRN ×3 (02:42→21:22)
[2021-12-11] MEDS: Budesonide 0.5 MG/2 ML NEB NEB SCH ×2 (07:15→19:15)
[2021-12-11 07:46] LABS: Hemoglobin 8.3 g/dL (14.0-18.0); Mean Platelet Volume 7.2 fL (7.4-10.4); Platelet Count 469 thou/uL (130-400); RBC Distribution Width 17.2 % (11.5-14.5); Red Blood Cell (RBC) Count 2.69 mill/uL (4.70-6.10); White Blood Cell (WBC) Count 10.4 thou/uL (4.8-10.8)
[2021-12-11 07:55] LABS: ALT (SGPT) 9 U/L (8-55); AST (SGOT) 13 U/L (5-34); Albumin 3.4 g/dL (3.4-4.8); Alkaline Phosphatase 97 U/L (40-110); BUN (Urea Nitrogen) 22 mg/dL (8.4-25.7); Bilirubin, Total 1.8 mg/dL (0.2-1.2); Calc. Creatinine Clearance 79 mL/min (70-130); Calcium 8.6 mg/dL (7.8-10.44); Globulin 2.6 g/dL (2.4-3.5); Glucose 93 mg/dL (83-110)
[2021-12-11 08:09] LABS: Anion Gap 15 mmol/L (10-20); Carbon Dioxide 39 mmol/L (23-31); Chloride 89 mmol/L (98-107); Potassium 3.9 mmol/L (3.5-5.1); Sodium 139 mmol/L (136-145)
[2021-12-11 08:14] LABS: Band 42 % (5-11); Eosinophils 1 % (0-10); Hypochromia SLIGHT = 6-15 cells (100X) (0-5/hpf); Lymphocytes 21 % (21-51); MDiff Complete? YES; Macrocytosis MODERATE=16-30 cells (100X) (0-5/hpf); Monocytes 22 % (0-10); Neutrophil 14 % (42-75); Nucleated RBC 4 % (0); Platelet Morphology Comment Appears Increased; Polychromasia MODERATE = 3-4 cells (100X) (0-2/hpf)
[2021-12-11] MEDS: Digoxin 0.125 MG TAB PO SCH (08:40)
[2021-12-11] MEDS ORDERED: Bisacodyl 10 MG SUPP PR PRN (08:54)
[2021-12-11] MEDS ORDERED: Bisacodyl 10 MG SUPP PR SCH (09:00)
[2021-12-11] MEDS: Trospium 20 MG TAB PO SCH ×2 (09:11→21:20)
[2021-12-11] MEDS: Pantoprazole 40 MG VIAL IVP SCH ×2 (09:11→21:21)
[2021-12-11] MEDS: Iron, Sodium Ferric Gluconate 250 MG in Sodium Chloride 0.9% 250 ML 250 ML IVPB SCH (09:38)
[2021-12-11 10:44] VITALS: BMI 28.0
[2021-12-11] MEDS: Morphine 4 MG/ML VIAL SLOW IVP PRN (17:09)
[2021-12-11] MEDS ORDERED: Fentanyl 100 MCG/2 ML VIAL SLOW IVP SCH ×2 (17:45→17:47)
[2021-12-11] MEDS: Atorvastatin Calcium 40 MG TAB PO SCH (21:21)
[2021-12-12] MEDS: DOPamine 400 MG/D5W 250 ML 250 ML IVPB SCH (02:31)
[2021-12-12 04:09] LABS: ALT (SGPT) 8 U/L (8-55); AST (SGOT) 19 U/L (5-34); Albumin 3.2 g/dL (3.4-4.8); Alkaline Phosphatase 110 U/L (40-110); BUN (Urea Nitrogen) 21 mg/dL (8.4-25.7); Bilirubin, Total 1.5 mg/dL (0.2-1.2); Calc. Creatinine Clearance 77 mL/min (70-130); Calcium 8.6 mg/dL (7.8-10.44); Globulin 2.8 g/dL (2.4-3.5); Glucose 91 mg/dL (83-110)
[2021-12-12 04:18] LABS: Anion Gap 17 mmol/L (10-20); Carbon Dioxide 34 mmol/L (23-31); Chloride 93 mmol/L (98-107); Sodium 140 mmol/L (136-145)
[2021-12-12 04:43] LABS: Hemoglobin 8.9 g/dL (14.0-18.0); MDiff Complete? YES; Mean Corpuscular HGB CONC 28.9 g/dL (32.0-36.0); Mean Corpuscular Hemoglobin 31.8 pg (27.0-31.0); Mean Platelet Volume 7.5 fL (7.4-10.4); Platelet Count 460 thou/uL (130-400); RBC Distribution Width 17.2 % (11.5-14.5); Red Blood Cell (RBC) Count 2.79 mill/uL (4.70-6.10); White Blood Cell (WBC) Count 12.7 thou/uL (4.8-10.8)
[2021-12-12 04:44] LABS: Band 48 % (5-11); Eosinophils 1 % (0-10); Lymphocytes 11 % (21-51); Metamyelocyte 1 % (0-0); Monocytes 12 % (0-10); Myelocyte 1 % (0-0); Neutrophil 26 % (42-75); Nucleated RBC 3 % (0)
[2021-12-12] MEDS: Budesonide 0.5 MG/2 ML NEB NEB SCH ×2 (07:09→19:44)
[2021-12-12] MEDS: Digoxin 0.125 MG TAB PO SCH (08:00)
[2021-12-12] MEDS: Pantoprazole 40 MG VIAL IVP SCH ×2 (08:00→20:49)
[2021-12-12] MEDS: HYDROcodone/Acetaminophen 5/325 mg Tablet PO PRN ×2 (08:00→20:49)
[2021-12-12] MEDS: Trospium 20 MG TAB PO SCH ×2 (08:01→20:49)
[2021-12-12] MEDS: Morphine 4 MG/ML VIAL SLOW IVP PRN (14:26)
[2021-12-12] MEDS: Atorvastatin Calcium 40 MG TAB PO SCH (20:49)
[2021-12-13] MEDS: DOPamine 400 MG/D5W 250 ML 250 ML IVPB SCH (03:27)
[2021-12-13 04:13] VITALS: TEMP 97.1
[2021-12-13 04:31] LABS: ALT (SGPT) 8 U/L (8-55); AST (SGOT) 14 U/L (5-34); Albumin 2.9 g/dL (3.4-4.8); Alkaline Phosphatase 103 U/L (40-110); BUN (Urea Nitrogen) 39 mg/dL (8.4-25.7); Bilirubin, Total 1.7 mg/dL (0.2-1.2); Calc. Creatinine Clearance 62 mL/min (70-130); Calcium 8.6 mg/dL (7.8-10.44); Globulin 2.6 g/dL (2.4-3.5); Glucose 122 mg/dL (83-110); Protein, Total 5.5 g/dL (5.8-8.1)
[2021-12-13 04:40] LABS: Anion Gap 19 mmol/L (10-20); Carbon Dioxide 33 mmol/L (23-31); Chloride 94 mmol/L (98-107); Potassium 4.5 mmol/L (3.5-5.1); Sodium 141 mmol/L (136-145)
[2021-12-13] MEDS: Budesonide 0.5 MG/2 ML NEB NEB SCH (06:05)
[2021-12-13] MEDS ORDERED: Albumin 25% 25 GM/100 ML BOT IVPB SCH (08:00)
== END 2021-12-13 08:05 | disposition expired ==
LOC: ERS 12:35 → 2NO 14:54 → IMCU/EMU 20:56 → 2NO 12-04 23:35 → IMCU/EMU 12-06 18:10
PROVIDERS: ADMIT Internal Medicine; ATTEND Internal Medicine
PROC: 30233N1 Transfusion of Nonautologous Red Blood Cells into Peripheral Vein, Percutaneous Approach (ICD-10-PCS; principal; 2021-12-02)
PROC: 0DJ08ZZ Inspection of Upper Intestinal Tract, Via Natural or Artificial Opening Endoscopic (ICD-10-PCS; 2021-12-04)
PROC: 0W9G3ZZ Drainage of Peritoneal Cavity, Percutaneous Approach (ICD-10-PCS; 2021-12-06)
DX: I13.0 Hypertensive heart and chronic kidney disease with heart failure and stage 1 through stage 4 chronic kidney disease, or unspecified chronic kidney disease (principal); I50.23 Acute on chronic systolic (congestive) heart failure; I21.A1 Myocardial infarction type 2; J96.21 Acute and chronic respiratory failure with hypoxia; I48.21 Permanent atrial fibrillation; C34.92 Malignant neoplasm of unspecified part of left bronchus or lung; D62 Acute posthemorrhagic anemia; K92.1 Melena; E22.2 Syndrome of inappropriate secretion of antidiuretic hormone; J44.1 Chronic obstructive pulmonary disease with (acute) exacerbation; I47.2 Ventricular tachycardia; N17.9 Acute kidney failure, unspecified; E87.3 Alkalosis; K56.7 Ileus, unspecified; Q60.0 Renal agenesis, unilateral; Z66 Do not resuscitate; Z51.5 Encounter for palliative care; Z20.822 Contact with and (suspected) exposure to COVID-19; E78.5 Hyperlipidemia, unspecified; I25.10 Atherosclerotic heart disease of native coronary artery without angina pectoris; F10.10 Alcohol abuse, uncomplicated; F17.210 Nicotine dependence, cigarettes, uncomplicated; K31.9 Disease of stomach and duodenum, unspecified; I50.810 Right heart failure, unspecified; K70.31 Alcoholic cirrhosis of liver with ascites; N18.30 Chronic kidney disease, stage 3 unspecified; D50.9 Iron deficiency anemia, unspecified; I08.1 Rheumatic disorders of both mitral and tricuspid valves; E87.6 Hypokalemia; R57.0 Cardiogenic shock; E83.42 Hypomagnesemia; N32.89 Other specified disorders of bladder; Z99.81 Dependence on supplemental oxygen; Z79.82 Long term (current) use of aspirin; Z79.01 Long term (current) use of anticoagulants; Z90.49 Acquired absence of other specified parts of digestive tract; Z95.5 Presence of coronary angioplasty implant and graft; Z98.890 Other specified postprocedural states; Z79.899 Other long term (current) drug therapy; Z79.51 Long term (current) use of inhaled steroids; Z86.718 Personal history of other venous thrombosis and embolism
CPT/HCPCS: 36415; 36430; 49083; 71045; 71275; 74018; 74177; 76705; 80053; 81001; 82042; 82140; 82550; 82553; 82570; 82728; 83540; 83550; 83605; 83735; 83880; 83930; 83935; 84100; 84156; 84157; 84300; 84484; 85025; 85060; 85610; 85730; 86850; 86900; 86901; 87070; 87086; 87205; 88112; 88305; 88341; 88342; 89051; 93005; 93010; 93306; 93970; 94640; 94660; 96374; 96375; C9113; J0282; J1160; J1265; J1940; J2250; J2270; J2354; J2405; J2704; J2916; J3010; J3475; J7030; J7050; J7070; J7620; J7626; P9016; P9047; Q9967; U0003; U0005